=== PATIENT | female | born 1975 | race Caucasian/White ===

== ENCOUNTER → 2019-05-26 | Emergency (ER) | payer OTHER ==
[~2019-05-26] VITALS: Ht 157.5 cm; Wt 59.0 kg
[~2019-05-26] MED LIST: BACITRACIN15 GM TOPIC; BLEPH-105 ML OP; Bacitracin Oint UD TOPIC ONE; OPCON-A EYE DRO15 ML OP; Sulfacetamide 10% Opth 15ml Btl ONE; Sulfacetamide 10% Opth 15ml Btl RIGHT EYE STA
--- NOTE | 2019-05-26 18:46 | Emergency Room Report ---
History of Present Illness General Chief Complaint: Eye Problems Source: Patient Present Illness HPI Patient presents with inflammation of the lower eyelid. This is been worsened over the last 2 to 3 days. She denies change in her vision. There is been some itching and inflammation lateral side of her right eye. Is been no fever or chills. There is no crusty discharge. Pain is rated 2/10. Has not taken any medications. This has happened in the past. Patient wears glasses. She knows she has a pterygium of the left eye. No upper respiratory symptoms. Last menstruation normal. Patient is stressed and concerned about her father who is quite ill. Allergies: Coded Allergies: No Known Allergies (Unverified , 05/26/19) Patient History Past Medical History: see triage record Social History: Denies: smoking Social History Narrative Father being admitted to ICU Last Menstrual Period: 04/30/19 Now: No Reviewed Nursing Documentation: PMH: Agreed; PSxH: Agreed Nursing Documentation-PMH Past Medical History: No Stated History Review of Systems Constitutional: Denies: fever Eye: Reports: see HPI ENT: Denies: nose congestion, throat swelling, nasal discharge Gastrointestinal: Denies: nausea Genitourinary: Reports: see HPI Skin: Reports: see HPI Neurological: Denies: headache Physical Exam Vital Signs Date Time Temp Pulse Resp B/P (MAP) Pulse Ox O2 Delivery O2 Flow Rate FiO2 05/26/19 18:34 98.4 86 19 162/107 (125) 99 Room Air Sp02 EP Interpretation: reviewed, normal General Appearance: well appearing, no apparent distress, GCS 15 Head: normocephalic, atraumatic Eyes: left eye Fundiscopic - Normal, left eye other; bilateral eye PERRL, bilateral eye EOMI, bilateral eye Scleral Injection ENT: normal pharynx, moist mucus membranes Neck: normal inspection Respiratory: normal inspection Cardiovascular #1: regular rate, rhythm Cardiovascular #2: 2+ radial (R) Gastrointestinal: normal inspection Musculoskeletal: gait/station normal Neurologic: alert, grossly normal Psychiatric: other - Concerned about her father Skin: other - Lower leg inflammation and erythema Medical Decision Making Diagnostic Impression: Primary Impression: Eye inflammation ER Course Patient presents with right eye inflammation with some skin changes of the lower lid. Differential includes cellulitis, conjunctivitis amongst others. Treatment with topical antibiotics and ophthalmic antibiotics and anti- inflammatory medication. Vision unchanged from baseline. Discussed treatment plan with patient. Patient stable for outpatient observation and treatment. Last Vital Signs Date Time Temp Pulse Resp B/P (MAP) Pulse Ox O2 Delivery O2 Flow Rate FiO2 05/26/19 18:58 98.4 86 19 162/107 99 Room Air Accuracy of final vital signs Status: improved Disposition: HOME, SELF-CARE Condition: Improved Scripts Naphazoline Hcl/Pheniramine (OPCON-A EYE DROPS) 15 Ml Drops 1 DRP OP Q6HR PRN for inflammation, #10 ML Prov: Poncho Prather MD 05/26/19 Sulfacetamide Sodium (BLEPH-10) 5 Ml Drops 2 DROP OP Q6HR, #5 ML Prov: Poncho Prather MD 05/26/19 Bacitracin (Bacitracin) 28.4 Gm Oint...g. 1 APPLIC TOPIC BID, #10 GM Prov: Poncho Prather MD 05/26/19 Poncho Prather MD May 26, 2019 18:46
[2019-05-26 18:58] VITALS: BP 162/107
== END | disposition home or self-care (01) ==
LOC: EMR 18:45
DX: H01.9 Unspecified inflammation of eyelid (principal)
CPT/HCPCS: 99282